=== PATIENT | female | born 1990 | race Caucasian/White ===

== ENCOUNTER 2016-11-27 12:23 | Observation (INO) | payer MEDICAID ==
[2016-11-27] MEDS ORDERED: Sodium Chloride 0.9% 1,000 ML IV ONE (12:34)
[2016-11-27] MEDS ORDERED: Sodium Chloride 0.9% 10 ML Syringe FLUSH PRN (12:34)
[2016-11-27 13:09] LABS: CHLORIDE,CL 107 mmol/L (101-111); SODIUM,NA 136 mmol/L (135-145)
[2016-11-27] MEDS ORDERED: Acetaminophen 325 MG Tab PO PRN (15:03)
[2016-11-27] MEDS ORDERED: Lactated Ringers 1,000 ML IV ONE (16:54)
--- NOTE | 2016-11-27 17:37 | HP ---
CHIEF COMPLAINT: "I am bleeding profusely". HISTORY OF PRESENT ILLNESS: Mrs. Villanueva is a 26-year-old 3 para 3-0 - 0-3 female, who reports to the [facility] Emergency Department in [place] because of profuse vaginal bleeding. She states that 12 days ago, she had a total laparoscopic hysterectomy by Dr. An in [place] at [facility] and she was doing wonderfully until today when she was doing some housecleaning, she started bleeding and she was bleeding so much it was running down her legs. So, she came into the Emergency Department and I was called immediately to come see her. She started feeling lightheaded and dizzy, and I could see the blood coming out of her vagina and perineum onto the bed with large blood clots. Blood pressure was 60/30. Pulse 124 and she had IV fluids LR running into 2 IV sites wide open She had no shortness of breath, chest pain , dyspnea, nausea,vomiting, or diarrhea. No fever or chills. No hematochezia, hematemesis, backpain, leg pain, leg edema, or abdominal pain. She just had the bleeding that started acutely at home before coming in. PAST MEDICAL HISTORY: She has history of cold sores, herpes labialis. She denies any anemia, asthma, cancer, diabetes, thyroid disease, seizure disorder, thromboembolic disease, breast lesions, blood transfusions, or any other genetic illnesses throughout her lifetime. PAST SURGICAL HISTORY: Tubal ligation in December of 2015, which was done laparoscopically. Total laparoscopic hysterectomy, 12 days ago at [facility] by Dr. An. SOCIAL HISTORY: She was a smoker and she quit; since her surgery, she did have cravings, so she put nicotine patches on, but she denies any alcohol use or illicit drug use. She lives in [place] with her and three children. 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 GYNECOLOGY HISTORY: On 04/02/2016, normal spontaneous vaginal delivery; 03/2011, normal spontaneous vaginal delivery; 03/2004, normal spontaneous vaginal delivery. REVIEW OF SYSTEMS: All pertinent positive and negative review of systems per HPI. All other systems reviewed were negative. MEDICATIONS: Nicotine patch. LABORATORY DATA: Blood type O positive, antibody screen negative. WBC 8.8, hemoglobin 11.0, hematocrit 32.4, platelet count 445,000. PT 11.0. INR 1.1. CMP was normal. Ultrasound of the pelvis was accomplished. There was noted to be about 2.5 x 4 cm area of fluid in the pelvis near the vaginal cuff, which most likely represents blood and also could be residual fluid from her hysterectomy 12 days ago, but there was no blood that the plumbing service technician could see up near the kidneys or in the upper abdomen. OBJECTIVE: Vital Signs: Pulse 118, respirations 18, temp 98.8. General: A well-developed, well-nourished female, in moderate distress secondary to her dizziness, lightheadedness, and discomfort during her procedure. HEENT: Unremarkable. Neck: Supple without adenopathy or thyromegaly. Lungs: Clear to auscultation. No wheezing, rhonchi, or rales noted. Cardiovascular: Regular rhythm with tachycardia. Abdomen: Soft, nontender. Bowel sounds good. No rigidity, rebound tenderness, or peritoneal signs noted. No distention. Back: No CVA tenderness. Extremities: No edema, erythema, or tenderness noted. : Large amount of blood coming from the vagina. She had a total blood loss after arriving to the Emergency Department of 1200 mL of blood and blood clots. I placed a speculum into the vaginal vault after the patient was placed in the dorsal lithotomy position and I removed all blood and blood clots. There was noted to be active bleeding from a blood vessel on the left side of the vaginal cuff. I packed this area while searching for instruments and suture to stop the bleeding and despite putting 20 sponges into the vagina and pressure, she continued to bleed through these. Once I got all the suture material and instruments, the sponges were removed. I then placed three [id number] sutures around the bleeding site. I tied the knots down and was able to stop the bleeding. We used 0 [address] on [address]-1 needle. I cleaned the entire vagina out and dried it and despite putting pressure on the vaginal cuff and relaxing on the sutures, she had no more bleeding noted. The sutures were cut and again, evaluation of the vaginal cuff revealed no bleeding. ASSESSMENT: 1. Postoperative day #12 status post total laparoscopic hysterectomy. 2. Active bleeding from a blood vessel, which most likely with the amount of bleeding, was a vessel at the vaginal cuff. I was able to stop the bleeding with multiple [id number] sutures of 0 Vicryl suture. 3. Symptomatic hypotensio secondary to vaginal bleeding of 1200 mL. 4. Anemia secondary to acute blood loss. PLAN: 1. The patient is being admitted for observation and giving 2 units of packed red blood cells. We will recheck her hemoglobin approximately 4 hours after the second unit of packed red blood cells is transfused. 2. I will repeat her hemoglobin in the morning before she goes home as long as she is stable. 3. Risks, benefits, complications, and side effects of the procedure that we did today were discussed with the patient including injury to the bowel, and the risks of scarring of the vaginal cuff and continued bleeding despite stopping the bleeding externally. She understands this and also understands that she could have to go back to the operating room if she starts bleeding again. 4. The patient is to follow up with me during my December visit here at the [facility] in [place] for followup but if she does have any issues between now and then, she is to follow up with Dr. An in [place] at [facility]. 5. We will send her home with vitamin daily along with some iron, depending on what her hemoglobin is. 6. All her questions were answered. [facility] /[id number] MTDD
--- NOTE | 2016-11-27 17:48 | ER ---
SUBJECTIVE: The patient is a 26-year-old female, who came in to the emergency room with acute vaginal bleeding. Apparently, she just had a hysterectomy this past week. She comes in soaking pads, vaginal bleeding with clots, she is somewhat hypotensive. I was called immediately to the room to examine the patient. She did not really have much abdominal tenderness. Quick exam of her perineum with female RN, showed multiple clots that already passed and a bulging clot just at the os of the vagina. An IV was started immediately. She was given some IVF immediately. OB sports attorney on-call is Dr. West and he was called immediately and he came to the room and resume care from that point on. I did not evaluate or cared for the patient further. Please see Dr. West' note. He did go ahead and ligated the bleeding artery and got it all stopped. PAST MEDICAL HISTORY: As far as I know, 3 previous pregnancies and recent hysterectomy. CURRENT MEDICATIONS: 1. vitamins. 2. Valtrex 500 mg p.o. daily. 3. Percocet after the recent hysterectomy. ALLERGIES: She is not allergic to no medications. REVIEW OF SYSTEMS: Briefly revealed no chest pain, shortness of breath, headaches, trauma. No vomiting, no syncope, near syncope but she did have the acute vaginal bleeding. OBJECTIVE: Vital signs: Her blood pressure was reportedly 66/45 or there about. She was slightly tachycardic. GENERAL: She was bright eyed. A and O x3. GCS of 15. Normocephalic and atraumatic. Good historian. Normal speech. Very interactive and appropriate. No respiratory distress. CV: RRR. Upper lower extremities have good pulses. Abdomen: Soft, very mildly tendered and low but no acute abdomen. Again, she had the bleeding at the vaginal os with clots. LABORATORY DATA: Labs at that time were back, had normal white count, she had hemoglobin of 11, hematocrit of 32.4, platelets are normal; differentials were unremarkable. INR was 1.1. Her CMP was quite unremarkable. Her blood type was O positive. Again, I was not involved with any further care with the patient, please see Dr. West note. ASSESSMENT: Acute vaginal bleeding after recent hysterectomy. ER course cared for by Dr. West. PLAN: Please see Dr. West' note. He does plan to admit the patient and observe her. [facility] /[id number]
[2016-11-27] MEDS ORDERED: Ibuprofen 800 MG Tab PO PRN (22:01)
[2016-11-27] MEDS ORDERED: Docusate Sodium 100 MG Cap PO PRN (22:02)
[2016-11-28] MEDS: oxyCODONE 5 MG Tab PO PRN ×2 (00:17→04:14)
--- NOTE | 2016-11-28 03:58 | PCM.DCSUM1 ---
Discharge Summary - Hospital Course Free Text/Narrative:: 26 y.o 3 para 3-0-0-3 female with history of Total laparoscopic hysterectomy by Dr. An in [place] 13 days ago who was admitted for observation after undergoing heavy vaginal bleeding yesterday while doing housework at home. She had 1200 ml of blood loss in the Emergency Department. I suture ligated a bleeding blood vessel on the vaginal cuff with figure of 8 sutures of O Vicryl. the bleeding stopped and because of her being symptomatic with Low blood pressures, tachycardia and lightheadness and dizziness we admitted her for 2 units of packed red blood cells. She tolerated that fine and she felt much better after the 2 units of Packed red blood cells. Her vitals were stable and she was afebrile. She tolerated her diet well and ambulated well. She had good urinary output. She was discharged to home after being watched overnight. HPI Initial Comments: DISCHARGE INSTRUCTIONS: 1. Discharge to home. 2. Follow-up with me in December at 6 week check up 3. Follow-up with Dr. An with any further issues with her surgery. 4. vitamin and iron daily po 5. Ibuprofen, Tylenol and oxycodone for pain as needed for pain. DISCHARGE DIAGNOSIS: 1. Post-op Day # 12 vaginal bleeding fronm vaginal cuff S/P Total Laparoscopic hysterectomy. 2. Symptomatic acute anemia secondary to blood loss. 3. Repair of vaginal cuff bleeding with suture ligation of vaginal cuff. 4. Blood transfusion 2 units of Packed red blood cells. - Discharge Data Discharge Date: 11/28/16 (Hospital Day # 1) Discharge Disposition: Home, Self-Care 01 Condition: Good - Patient Summary/Data Operative Procedure(s) Performed: Vaginal cuff blood vessel suture ligated. - Patient Instructions Diet: Regular Diet as Tolerated Activity: As Tolerated, Full Weight Bearing Showering/Bathing: May Shower Wound/Incision Care: Keep Operative Site/Wound Site Clean and Dry Notify Provider of: Fever, Increased Pain, Swelling and Redness, Drainage, Nausea and/or Vomiting - Discharge Plan Home Medications: Home Meds . [No Known Home Meds] 11/27/16 [History] Forms: ED Department Discharge Referrals: PCP,Unobtain [Ordering Only Provider] - - Discharge Summary/Plan Comment DC Time >30 min.: Yes - Patient Data Vitals - Most Recent: Last Vital Signs Temp 98.6 F 11/28/16 03:40 Pulse 93 11/28/16 03:40 Resp 16 11/28/16 03:40 BP 103/57 L 11/28/16 03:40 Pulse Ox 100 11/28/16 03:40 Weight - Most Recent: 148 lb I&O - Last 24 hours: Intake & Output 11/27/16 11/27/16 11/28/16 14:59 22:59 06:59 Intake Total 2815 Output Total 2150 Balance 665 Lab Results - Last 24 hrs: Laboratory Results - last 24 hr 11/27/16 11/27/16 Range/Units 16:57 22:42 WBC 11.0 H (5.0-10.0) 10^3/uL RBC 3.60 L (4.2-5.4) 10^6/uL Hgb 9.2 L 10.3 L (12.0-16.0) g/dL Hct 27.8 L 30.9 L (37.0-47.0) % MCV 85.8 (80-100) fL MCH 28.6 (27.0-34.0) pg MCHC 33.3 (33.0-35.0) g/dL Plt Count 266 (150-450) 10^3/uL Med Orders - Current: Current Medications Acetaminophen (Tylenol) 650 mg PO Q4H PRN PRN Reason: Pain (mild 1-3 )/fever Docusate Sodium (Colace) 100 mg PO BID PRN PRN Reason: Constipation Last Admin: 11/27/16 22:55 Dose: 100 mg Ibuprofen (Motrin) 800 mg PO Q6H PRN PRN Reason: Pain Last Admin: 11/27/16 22:55 Dose: 800 mg Oxycodone HCl (Oxycodone) 5 mg PO Q4H PRN PRN Reason: Pain Last Admin: 11/28/16 00:17 Dose: 5 mg Prenat Multivit/[place]/Iron/Folic Ac ( Plus Iron) 1 each PO DAILY NICK Sodium Chloride (Saline Flush) 10 ml FLUSH ASDIRECTED PRN PRN Reason: Keep Vein Open Discontinued Medications Sodium Chloride (Normal Saline) 1,000 mls @ 1,000 mls/hr IV .BOLUS ONE Stop: 11/27/16 13:33 Last Admin: 11/27/16 17:44 Dose: Not Given Lactated Ringer's (Ringers, Lactated) 1,000 mls @ 999 mls/hr IV .BOLUS ONE Stop: 11/27/16 17:54 Last Admin: 11/27/16 16:15 Dose: 999 mls/hr *Q Meaningful Use (DIS) - VTE *Q VTE Criteria *Q: - Stroke *Q Stroke Criteria *Q: - AMI *Q AMI Criteria *Q:
--- NOTE | 2016-11-28 04:13 | PCM.PN ---
- General Info Date of Service: 11/28/16 (Hospital Day # 1) Functional Status: Reports: pain controlled, tolerating diet, ambulating, urinating - Review of Systems General: Reports: No Symptoms HEENT: Reports: no symptoms Pulmonary: Reports: no symptoms Cardiovascular: Reports: No Symptoms Gastrointestinal: Reports: No symptoms Genitourinary: Reports: no symptoms Musculoskeletal: Reports: no symptoms Skin: Reports: no symptoms Neurological: Reports: No Symptoms Psychiatric: Reports: no symptoms - Patient Data Vitals - most recent: Last Vital Signs Temp 98.6 F 11/28/16 03:40 Pulse 93 11/28/16 03:40 Resp 16 11/28/16 03:40 BP 103/57 L 11/28/16 03:40 Pulse Ox 100 11/28/16 03:40 Weight - most recent: 148 lb I&O - last 24 hours: Intake & Output 11/27/16 11/27/16 11/28/16 14:59 22:59 06:59 Intake Total 2815 Output Total 2150 Balance 665 Lab Results last 24 hrs: Laboratory Results - last 24 hr 11/27/16 11/27/16 Range/Units 16:57 22:42 WBC 11.0 H (5.0-10.0) 10^3/uL RBC 3.60 L (4.2-5.4) 10^6/uL Hgb 9.2 L 10.3 L (12.0-16.0) g/dL Hct 27.8 L 30.9 L (37.0-47.0) % MCV 85.8 (80-100) fL MCH 28.6 (27.0-34.0) pg MCHC 33.3 (33.0-35.0) g/dL Plt Count 266 (150-450) 10^3/uL Med Orders - Current: Current Medications Acetaminophen (Tylenol) 650 mg PO Q4H PRN PRN Reason: Pain (mild 1-3 )/fever Docusate Sodium (Colace) 100 mg PO BID PRN PRN Reason: Constipation Last Admin: 11/27/16 22:55 Dose: 100 mg Ibuprofen (Motrin) 800 mg PO Q6H PRN PRN Reason: Pain Last Admin: 11/27/16 22:55 Dose: 800 mg Oxycodone HCl (Oxycodone) 5 mg PO Q4H PRN PRN Reason: Pain Last Admin: 11/28/16 00:17 Dose: 5 mg Prenat Multivit/[place]/Iron/Folic Ac ( Plus Iron) 1 each PO DAILY NICK Sodium Chloride (Saline Flush) 10 ml FLUSH ASDIRECTED PRN PRN Reason: Keep Vein Open Discontinued Medications Sodium Chloride (Normal Saline) 1,000 mls @ 1,000 mls/hr IV .BOLUS ONE Stop: 11/27/16 13:33 Last Admin: 11/27/16 17:44 Dose: Not Given Lactated Ringer's (Ringers, Lactated) 1,000 mls @ 999 mls/hr IV .BOLUS ONE Stop: 11/27/16 17:54 Last Admin: 11/27/16 16:15 Dose: 999 mls/hr - Exam General: alert, oriented, cooperative, no acute distress HEENT: Pupils equal, Pupils reactive Neck: supple Lungs: Clear to auscultation, Normal respiratory effort Cardiovascular: Regular Rate, Regular Rhythm, No Murmurs Abdomen: bowel sounds present, soft, no tenderness, no distension (Female) Exam: Vaginal bleeding (Very small spotting noted throughout the night) Back Exam: normal inspection, full range of motion Extremities: no edema, normal pulses, no tenderness/swelling Skin: warm, dry, intact Wound/Incisions: healing well, no drainage Neurological: no new focal deficit, normal gait, normal speech Psy/Mental Status: alert, normal affect, normal mood - Problem List Review Problem List Initiated/Reviewed/Updated: Yes - My Orders Last 24 Hours: My Active Orders 11/27/16 15:10 Ready for Discharge [RC] PER UNIT ROUTINE 11/27/16 22:01 Ibuprofen [Motrin] 800 mg PO Q6H PRN 11/27/16 22:02 Docusate Sodium [Colace] 100 mg PO BID PRN 11/28/16 00:09 oxyCODONE 5 mg PO Q4H PRN - Assessment Assessment:: POD # 13 S/P Total laproscopic hysterectomy feeling much better. S/P vaginal bleeding with 1200 mL of blood loss Symptomatic anemia secondary to acute blood loss improved. Transfused 2 units of packed red blood cell - Plan Plan:: Discharge to home. Follow up with Dr. An with any further issues. Follow-up for 6 week checkup Take it slowly and no intercourse until 8 weeks after initial surgery. No heavy lifting or housework for the next 2 weeks. Ibuprofen, Tylenol Oxycodone for pain as needed. vitamin and iron for the next 2 weeks.
[2016-11-28 07:27] VITALS: BP 113/65
[2016-11-28] MEDS ORDERED: Prenatal Multivitamin with Calcium/Folic Acid/Iron Tab PO SCH (09:00)
== END 2016-11-28 08:40 | disposition home or self-care (01) ==
LOC: DL.ED 12:23 → UNDOADMIN 14:06 → DL.MS 14:06 → INTOOBSV 15:03 → DL.MS 15:03
PROVIDERS: ADMIT Obstetrics & Gynecology; ATTEND Obstetrics & Gynecology
DX: N99.820 Postprocedural hemorrhage of a genitourinary system organ or structure following a genitourinary system procedure (principal); D62 Acute posthemorrhagic anemia; J45.909 Unspecified asthma, uncomplicated; E03.9 Hypothyroidism, unspecified; Z90.710 Acquired absence of both cervix and uterus; Z98.51 Tubal ligation status; Z98.890 Other specified postprocedural states; Z87.891 Personal history of nicotine dependence; Z79.899 Other long term (current) drug therapy
CPT/HCPCS: 36415; 36430; 76830; 76856; 80053; 85014; 85018; 85025; 85027; 85610; 86850; 86900; 86901; 86920; 86922; 96360; 99285; A9270; G0378; J7120; P9016

== ENCOUNTER 2020-07-22 02:04 | Emergency (ER) | payer MEDICAID ==
[2020-07-22] MEDS ORDERED: Sodium Chloride 0.9% 1,000 ML IV ONE (02:11)
--- NOTE | 2020-07-22 02:13 | EDM.PDOC ---
ED HPI GENERAL MEDICAL PROBLEM - General Chief Complaint: Drug or Alcohol Abuse Stated Complaint: OVERDOSE Time Seen by Provider: 07/22/20 02:13 Source of Information: Reports: Patient, Family History Limitations: Reports: No Limitations - History of Present Illness INITIAL COMMENTS - FREE TEXT/NARRATIVE: overdose 20-25 propranolol 20mg tablets approximately 10pm tonight, reports self induced vomiting x 3 within past 2 hours some partialy digested pill fragments in emesis. Hx anxiety and depression, Denied prior attempts. Reports not feeling suicidal at present. Saw provider yesterday. Does not feel meds working/ Tomorrow adding "antipsychotic" Does not know name of all medications. Took usual medications this am. Blood to left hand reports scratch on nail on stairway that is under construction. Denied self harm. Wounds appear inconsistent with nail scratch. - Related Data Allergies Allergy/AdvReac Type Severity Reaction Status Date / Time No Known Allergies Allergy Verified 07/22/20 02:32 Home Meds: Home Meds . 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 hx ctx Musculoskeletal History: Reports: Back Pain, Chronic - Infectious Disease History Infectious Disease History: Reports: Other (See Below) (Adacel 2016) - Past Surgical History HEENT Surgical History: Reports: Oral Surgery Female Surgical History: Reports: Tubal Ligation Social & Family History - Family History Oncologic: Reports: Lung - Caffeine Use Caffeine Use: Reports: Soda, Tea ED ROS GENERAL - Review of Systems Review Of Systems: Comprehensive ROS is negative, except as noted in HPI. ED EXAM, GENERAL - Physical Exam Exam: See Below Exam Limited By: No Limitations General Appearance: Alert, Mild Distress Ears: Normal External Exam, Hearing Grossly Normal Nose: Normal Inspection Throat/Mouth: Normal Inspection Head: Atraumatic, Normocephalic Neck: Normal Inspection Respiratory/Chest: No Respiratory Distress, Lungs Clear, Normal Breath Sounds Cardiovascular: Normal Peripheral Pulses, Regular Rate, Rhythm GI/Abdominal: Soft, Non-Tender Extremities: Normal Inspection Neurological: Alert, Oriented, Normal Cognition Psychiatric: Flat Affect Skin Exam: Wound/Incision (superficial lacerations/scratxhes left inner wrist, dried blood, no active bleeding) Course - Vital Signs Last Recorded V/S: Last Vital Signs Temp 98 F 07/22/20 02:10 Pulse 77 07/22/20 02:10 Resp 17 07/22/20 02:10 BP 132/93 H 07/22/20 02:10 Pulse Ox 100 07/22/20 02:10 - Orders/Labs/Meds Labs: Laboratory Tests 07/22/20 07/22/20 07/22/20 Range/Units 02:15 02:19 02:19 WBC 14.1 H (5.0-10.0) 10^3/uL RBC 4.86 (4.2-5.4) 10^6/uL Hgb 15.4 D (12.0-16.0) g/dL Hct 43.9 (37.0-47.0) % MCV 90.3 D (80-100) fL MCH 31.7 (27.0-34.0) pg MCHC 35.1 H (33.0-35.0) g/dL Plt Count 414 D (150-450) 10^3/uL Neut % (Auto) 62.2 (42.2-75.2) % Lymph % (Auto) 26.2 (20.5-50.1) % [place] % (Auto) 6.3 (2-8) % Eos % (Auto) 4.8 H (1.0-3.0) % Baso % (Auto) 0.5 (0.0-1.0) % Sodium 139 (136-145) mmol/L Potassium 3.4 L (3.5-5.1) mmol/L Chloride 102 (98-107) mmol/L Carbon Dioxide 25 (21-32) mmol/L Anion Gap 15.4 H (7-13) mEq/L BUN 7 (7-18) mg/dL Creatinine 0.86 (0.55-1.02) mg/dL Est Cr Clr Drug Dosing 74.96 mL/min Estimated GFR (MDRD) > 60 BUN/Creatinine Ratio 8.1 (No establ ref range) Glucose 94 (74-99) mg/dL POC Glucose 104 (70-105) mg/dl Calcium 8.7 (8.5-10.1) mg/dL Magnesium 2.0 (1.8-2.4) mg/dL Total Bilirubin 0.7 (0.2-1.0) mg/dL AST 16 (15-37) U/L ALT 24 (14-59) U/L Alkaline Phosphatase 80 (46-116) U/L Total Protein 7.1 (6.4-8.2) g/dL Albumin 3.7 (3.4-5.0) g/dL Globulin 3.4 Albumin/Globulin Ratio 1.1 Amylase 75 (25-115) U/L Lipase 78 (73-393) U/L Urine HCG, Qual Salicylates (2.8-20(Therapeutic)) mg/dL Urine Opiates Screen (NEGATIVE) Ur Oxycodone Screen (NEGATIVE) Urine Methadone Screen (NEGATIVE) Acetaminophen (10-30 (Therapeutic)) ug/mL Ur Barbiturates Screen (NEGATIVE) U Tricyclic Antidepress (NEGATIVE) Ur Phencyclidine Scrn (NEGATIVE) Ur Amphetamine Screen (NEGATIVE) U Methamphetamines Scrn (NEGATIVE) Urine MDMA Screen (NEGATIVE) U Benzodiazepines Scrn (NEGATIVE) Urine Cocaine Screen (NEGATIVE) U Marijuana (THC) Screen (NEGATIVE) Ethyl Alcohol < 3 (0) mg/dL 07/22/20 07/22/20 07/22/20 Range/Units 02:19 02:19 02:21 WBC (5.0-10.0) 10^3/uL RBC (4.2-5.4) 10^6/uL Hgb (12.0-16.0) g/dL Hct (37.0-47.0) % MCV (80-100) fL MCH (27.0-34.0) pg MCHC (33.0-35.0) g/dL Plt Count (150-450) 10^3/uL Neut % (Auto) (42.2-75.2) % Lymph % (Auto) (20.5-50.1) % [place] % (Auto) (2-8) % Eos % (Auto) (1.0-3.0) % Baso % (Auto) (0.0-1.0) % Sodium (136-145) mmol/L Potassium (3.5-5.1) mmol/L Chloride (98-107) mmol/L Carbon Dioxide (21-32) mmol/L Anion Gap (7-13) mEq/L BUN (7-18) mg/dL Creatinine (0.55-1.02) mg/dL Est Cr Clr Drug Dosing mL/min Estimated GFR (MDRD) BUN/Creatinine Ratio (No establ ref range) Glucose (74-99) mg/dL POC Glucose (70-105) mg/dl Calcium (8.5-10.1) mg/dL Magnesium (1.8-2.4) mg/dL Total Bilirubin (0.2-1.0) mg/dL AST (15-37) U/L ALT (14-59) U/L Alkaline Phosphatase (46-116) U/L Total Protein (6.4-8.2) g/dL Albumin (3.4-5.0) g/dL Globulin Albumin/Globulin Ratio Amylase (25-115) U/L Lipase (73-393) U/L Urine HCG, Qual Negative Salicylates 3.9 (2.8-20(Therapeutic)) mg/dL Urine Opiates Screen (NEGATIVE) Ur Oxycodone Screen (NEGATIVE) Urine Methadone Screen (NEGATIVE) Acetaminophen 0 L (10-30 (Therapeutic)) ug/mL Ur Barbiturates Screen (NEGATIVE) U Tricyclic Antidepress (NEGATIVE) Ur Phencyclidine Scrn (NEGATIVE) Ur Amphetamine Screen (NEGATIVE) U Methamphetamines Scrn (NEGATIVE) Urine MDMA Screen (NEGATIVE) U Benzodiazepines Scrn (NEGATIVE) Urine Cocaine Screen (NEGATIVE) U Marijuana (THC) Screen (NEGATIVE) Ethyl Alcohol (0) mg/dL 07/22/20 Range/Units 02:21 WBC (5.0-10.0) 10^3/uL RBC (4.2-5.4) 10^6/uL Hgb (12.0-16.0) g/dL Hct (37.0-47.0) % MCV (80-100) fL MCH (27.0-34.0) pg MCHC (33.0-35.0) g/dL Plt Count (150-450) 10^3/uL Neut % (Auto) (42.2-75.2) % Lymph % (Auto) (20.5-50.1) % [place] % (Auto) (2-8) % Eos % (Auto) (1.0-3.0) % Baso % (Auto) (0.0-1.0) % Sodium (136-145) mmol/L Potassium (3.5-5.1) mmol/L Chloride (98-107) mmol/L Carbon Dioxide (21-32) mmol/L Anion Gap (7-13) mEq/L BUN (7-18) mg/dL Creatinine (0.55-1.02) mg/dL Est Cr Clr Drug Dosing mL/min Estimated GFR (MDRD) BUN/Creatinine Ratio (No establ ref range) Glucose (74-99) mg/dL POC Glucose (70-105) mg/dl Calcium (8.5-10.1) mg/dL Magnesium (1.8-2.4) mg/dL Total Bilirubin (0.2-1.0) mg/dL AST (15-37) U/L ALT (14-59) U/L Alkaline Phosphatase (46-116) U/L Total Protein (6.4-8.2) g/dL Albumin (3.4-5.0) g/dL Globulin Albumin/Globulin Ratio Amylase (25-115) U/L Lipase (73-393) U/L Urine HCG, Qual Salicylates (2.8-20(Therapeutic)) mg/dL Urine Opiates Screen Negative (NEGATIVE) Ur Oxycodone Screen Negative (NEGATIVE) Urine Methadone Screen Negative (NEGATIVE) Acetaminophen (10-30 (Therapeutic)) ug/mL Ur Barbiturates Screen Negative (NEGATIVE) U Tricyclic Antidepress Negative (NEGATIVE) Ur Phencyclidine Scrn Negative (NEGATIVE) Ur Amphetamine Screen Positive H (NEGATIVE) U Methamphetamines Scrn Positive H (NEGATIVE) Urine MDMA Screen Negative (NEGATIVE) U Benzodiazepines Scrn Negative (NEGATIVE) Urine Cocaine Screen Negative (NEGATIVE) U Marijuana (THC) Screen Negative (NEGATIVE) Ethyl Alcohol (0) mg/dL Meds: Medications Discontinued Medications Generic Name Dose Route Start Last Admin Trade Name Freq PRN Reason Stop Dose Admin Bacitracin 1 dose 07/22/20 04:56 07/22/20 05:00 Bacitracin Oint 1 Gm TOP 07/22/20 04:57 1 dose ONETIME ONE Administration Sodium Chloride 1,000 mls @ 999 mls/hr 07/22/20 02:11 07/22/20 02:20 Normal Saline IV 07/22/20 03:11 999 mls/hr .BOLUS ONE Administration - Re-Assessments/Exams Free Text/Narrative Re-Assessment/Exam: Crisis Counselor from [facility] here to assess patient. Patient will follow with [facility] later today and follow up for med management Departure - Departure Time of Disposition: 04:56 Disposition: Home, Self-Care 01 Condition: Fair Clinical Impression: Anxiety and depression Overdose Qualifiers: Encounter type: initial encounter Injury intent: intentional self-harm Qualified Code(s): T50.902A - Poisoning by unspecified drugs, medicaments and biological substances, intentional self-harm, initial encounter - Discharge Information *PRESCRIPTION DRUG MONITORING PROGRAM REVIEWED*: No *COPY OF PRESCRIPTION DRUG MONITORING REPORT IN PATIENT [place]: No Instructions: Suicidal Feelings: How to Help Yourself, Managing Anxiety, Adult Forms: ED Department Discharge Additional Instructions: follow up with [facility] today, Light activity frequent small meals increase fluids monitor wound, follow up redness drainage noted
[2020-07-22 02:22] VITALS: BP 132/93; PULSE 77
[2020-07-22 02:51] LABS: ANION GAP 15.4 mEq/L (7-13); CHLORIDE,CL 102 mmol/L (98-107); SODIUM,NA 139 mmol/L (136-145)
[2020-07-22] MEDS ORDERED: Bacitracin Oint 1 GM U/D Packet TOP ONE (04:56)
== END 2020-07-22 05:06 | disposition home or self-care (01) ==
LOC: DL.ED 02:04
DX: T50.902A Poisoning by unspecified drugs, medicaments and biological substances, intentional self-harm, initial encounter (principal); F41.8 Other specified anxiety disorders; S61.512A Laceration without foreign body of left wrist, initial encounter; W45.0XXA Nail entering through skin, initial encounter
CPT/HCPCS: 36415; 80053; 80305-QW; 80307; 81025; 82150; 82962; 83690; 83735; 85025; 93005; 99285-25; J7030

== ENCOUNTER 2021-02-16 17:32 | Emergency (ER) | payer MEDICAID ==
[2021-02-16 17:45] VITALS: BP 141/100; PULSE 95
[2021-02-16] MEDS ORDERED: diphenhydrAMINE 50 MG/ML SDV IVPUSH ONE (17:46)
[2021-02-16] MEDS ORDERED: Sodium Chloride 0.9% 10 ML Syringe FLUSH PRN (17:47)
[2021-02-16] MEDS ORDERED: Metoclopramide 10 MG/2 ML SDV IVPUSH ONE (17:47)
[2021-02-16] MEDS ORDERED: Ketorolac 30 MG/ML SDV IVPUSH ONE (17:47)
[2021-02-16] MEDS ORDERED: Sodium Chloride 0.9% 1,000 ML IV ONE (17:47)
--- NOTE | 2021-02-16 18:21 | EDM.PDOC ---
Scribed by Smiley Lynne 02/16/21 [id number] for Vincenzo Holland MD ED HPI GENERAL MEDICAL PROBLEM - General Chief Complaint: Headache Stated Complaint: MIGRAINE ALL DAY Time Seen by Provider: 02/16/21 17:41 Source of Information: Reports: Patient, EMS, RN, RN Notes Reviewed History Limitations: Reports: No Limitations - History of Present Illness INITIAL COMMENTS - FREE TEXT/NARRATIVE: Patient presents to ED by POV complaining of migraine headache that started at noon today. Pt has Hx of migraines. She states this headache is on the left side, causes nausea, and light hurts her eyes. She took 4 Excedrin at 1500HRS with no relief. She stopped her propranolol on her own without her doctor's knowledge. Onset: Today Duration: Constant Location: Reports: Head Quality: Reports: Ache, Same as Previous Episode Severity: Severe Improves with: Reports: None Worsens with: Reports: None Associated Symptoms: Reports: No Other Symptoms Head Pain Score (Numeric/FACES): 8 - Related Data Allergies Allergy/AdvReac Type Severity Reaction Status Date / Time No Known Allergies Allergy Verified 02/16/21 17:46 Home Meds: Home Meds . 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 hx ctx Musculoskeletal History: Reports: Back Pain, Chronic Neurological History: Reports: Migraines Hematologic History: Reports: Anemia - Infectious Disease History Infectious Disease History: Reports: Other (See Below) (Adacel 2016) - Past Surgical History HEENT Surgical History: Reports: Oral Surgery Female Surgical History: Reports: Tubal Ligation Social & Family History - Family History Family Medical History: No Pertinent Family History Oncologic: Reports: Lung - Caffeine Use Caffeine Use: Reports: Soda, Tea - Living Situation & Occupation Living situation: Reports: with Family ED ROS GENERAL - Review of Systems Review Of Systems: Comprehensive ROS is negative, except as noted in HPI. - Physical Exam Exam: See Below Exam Limited By: No Limitations General Appearance: Alert, WD/WN, No Apparent Distress Eye Exam: Bilateral Eye: EOMI, Normal Inspection, PERRL, Other (photophobia) Ears: Normal External Exam, Normal Canal, Hearing Grossly Normal, Normal TMs Nose: Normal Inspection, Normal Mucosa, No Blood Throat/Mouth: Normal Inspection, Normal Lips, Normal Teeth, Normal Gums, Normal Oropharynx, Normal Voice, No Airway Compromise Head Exam: Atraumatic, Normocephalic Neck: Normal Inspection, Supple, Non-Tender, Full Range of Motion Respiratory/Chest: No Respiratory Distress, Lungs Clear, Normal Breath Sounds, No Accessory Muscle Use, Chest Non-Tender Cardiovascular: Normal Peripheral Pulses, Regular Rate, Rhythm, No Edema, No Gallop, No JVD, No Murmur, No Rub GI/Abdominal: Normal Bowel Sounds, Soft, Non-Tender, No Organomegaly, No Distention, No Abnormal Bruit, No Mass (Female) Exam: Deferred Rectal (Female) Exam: Deferred Neuro Exam (Abbreviated): Alert, Oriented, CN II-XII Intact, Normal Cognition, N ormal Gait, Normal Reflexes, No Motor/Sensory Deficits Back Exam: Normal Inspection, Full Range of Motion, NT Extremities: Normal Inspection, Normal Range of Motion, Non-Tender, No Pedal Edema, Normal Capillary Refill Psychiatric: Normal Affect, Normal Mood Skin Exam: Warm, Dry, Intact, Normal Color, No Rash Course - Vital Signs Last Recorded V/S: Last Vital Signs Temp 98 F 02/16/21 17:42 Pulse 95 02/16/21 17:42 Resp 12 02/16/21 17:42 BP 141/100 H 02/16/21 17:42 Pulse Ox 100 02/16/21 17:42 - Orders/Labs/Meds Orders: Active Orders 24 hr Category Date Time Status Peripheral IV Care [RC] . DIRECTED Care 02/16/21 17:47 Active Sodium Chloride 0.9% [Normal Saline] 1,000 ml Med 02/16/21 17:47 Active IV .BOLUS Sodium Chloride 0.9% [Saline Flush] Med 02/16/21 17:47 Active 10 ml FLUSH ASDIRECTED PRN Peripheral IV Insertion Adult [OM.PC] Stat Oth 02/16/21 17:46 Ordered Medication Orders Sodium Chloride (Normal Saline) 1,000 mls @ 999 mls/hr IV .BOLUS ONE Stop: 02/16/21 18:47 Last Admin: 02/16/21 18:03 Dose: 999 mls/hr Documented by: MELANIE Sodium Chloride (Sodium Chloride 0.9% 10 Ml Syringe) 10 ml FLUSH ASDIRECTED PRN PRN Reason: Keep Vein Open Meds: Medications Generic Name Dose Route Start Last Admin Trade Name Freq PRN Reason Stop Dose Admin Sodium Chloride 1,000 mls @ 999 mls/hr 02/16/21 17:47 02/16/21 18:03 Normal Saline IV 02/16/21 18:47 999 mls/hr .BOLUS ONE Administration Sodium Chloride 10 ml 02/16/21 17:47 Sodium Chloride 0.9% 10 Ml Syringe FLUSH ASDIRECTED PRN Keep Vein Open Discontinued Medications Generic Name Dose Route Start Last Admin Trade Name Freq PRN Reason Stop Dose Admin Diphenhydramine HCl 25 mg 02/16/21 17:46 02/16/21 18:01 Diphenhydramine 50 Mg/Ml Sdv IVPUSH 02/16/21 17:47 25 mg ONETIME ONE Administration Ketorolac Tromethamine 30 mg 02/16/21 17:47 02/16/21 18:01 Ketorolac 30 Mg/Ml Sdv IVPUSH 02/16/21 17:48 30 mg ONETIME ONE Administration Metoclopramide HCl 10 mg 02/16/21 17:47 02/16/21 18:03 Metoclopramide 10 Mg/2 Ml Sdv IVPUSH 02/16/21 17:48 10 mg ONETIME ONE Administration Departure - Departure Time of Disposition: 18:40 Disposition: Home, Self-Care 01 Condition: Good Clinical Impression: Migraine - Discharge Information *PRESCRIPTION DRUG MONITORING PROGRAM REVIEWED*: Not Applicable *COPY OF PRESCRIPTION DRUG MONITORING REPORT IN PATIENT [place]: Not Applicable Instructions: Migraine Headache, [id number] Forms: ED Department Discharge Additional Instructions: Your received the following medications for your migraine: Reglan 10mg IV, Marty adryl 25mg IV, and Toradol 30mg IV. Follow up in clinic if needed. Sepsis Event Note (ED) - Focused Exam Vital Signs: Vital Signs Temp Pulse Resp BP Pulse Ox 02/16/21 17:42 98 F 95 12 141/100 H 100 - My Orders Last 24 Hours: My Active Orders 02/16/21 17:46 Peripheral IV Insertion Adult [OM.PC] Stat 02/16/21 17:47 Peripheral IV Care [RC] . DIRECTED Sodium Chloride 0.9% [Normal Saline] 1,000 ml IV .BOLUS Sodium Chloride 0.9% [Saline Flush] 10 ml FLUSH ASDIRECTED PRN - Assessment/Plan Last 24 Hours: My Active Orders 02/16/21 17:46 Peripheral IV Insertion Adult [OM.PC] Stat 02/16/21 17:47 Peripheral IV Care [RC] . DIRECTED Sodium Chloride 0.9% [Normal Saline] 1,000 ml IV .BOLUS Sodium Chloride 0.9% [Saline Flush] 10 ml FLUSH ASDIRECTED PRN I have read and agree with the documentation that has been completed regarding this visit. By signing this record, I attest that the documentation was completed in my physical presence and is an accurate record of the encounter.
== END 2021-02-16 18:30 | disposition home or self-care (01) ==
LOC: DL.ED 17:32
DX: G43.909 Migraine, unspecified, not intractable, without status migrainosus (principal)
CPT/HCPCS: 96374; 96375; 99283; 99283-25; J1200; J1885; J2765; J7030

== ENCOUNTER 2023-02-01 17:45 | Emergency (ER) | payer MEDICAID ==
[2023-02-01] MEDS ORDERED: fentaNYL 100 MCG/2 ML SDV IVPUSH ONE (17:58)
[2023-02-01 18:14] LABS: BASOPHILS PERCENT AUTO 0.2 % (0.0-1.0); EOSINOPHILS PERCENT AUTO 2.1 % (1.0-3.0); HEMATOCRIT 44.6 % (37.0-47.0); HEMOGLOBIN 15.4 g/dL (12.0-16.0); LYMPHOCYTES PERCENT AUTO 17.2 % (20.5-50.1); MEAN CORPUSCULAR HGB CONC 34.5 g/dL (33.0-35.0); MEAN CORPUSCULAR VOLUME 89.7 fL (80-100); MONOCYTES PERCENT AUTO 7.4 % (2-8); NEUTROPHILS PERCENT AUTO 73.1 % (42.2-75.2); PLATELET COUNT,PLT 365 10^3/uL (150-450); RED BLOOD CELL COUNT 4.97 10^6/uL (4.2-5.4); WHITE BLOOD CELL COUNT,WBC 12.2 10^3/uL (5.0-10.0)
[2023-02-01 18:31] LABS: ANION GAP 12.8 mEq/L (7-13); CALCIUM 8.9 mg/dL (8.5-10.1); CREATININE 0.92 mg/dL (0.55-1.02); EST CRCL DRUG DOSING (CG) 68.15 mL/min; POTASSIUM,K 3.8 mmol/L (3.5-5.1)
[2023-02-01] MEDS ORDERED: HYDROmorphone 0.5 MG/0.5 ML Syringe IVPUSH ONE (18:44)
[2023-02-01 18:53] LABS: APPEARANCE,URINE CLOUDY (CLEAR); BILIRUBIN,URINE NEGATIVE (NEGATIVE); COLOR,URINE YELLOW (YELLOW); GLUCOSE,URINE NEGATIVE (NEGATIVE); KETONES,URINE NEGATIVE (NEGATIVE); LEUKOCYTE ESTERASE,URINE NEGATIVE (NEGATIVE); NITRITE,URINE NEGATIVE (NEGATIVE); OCCULT BLOOD,URINE NEGATIVE (NEGATIVE); PH,URINE 7.5 (5.0-9.0); PROTEIN,URINE 30 (NEGATIVE); UROBILINOGEN,URINE 0.2 mg/dL (0.2-1.0)
[2023-02-01 18:57] LABS: AMORPHOUS SEDIMENT,URINE MANY /HPF (NOT SEEN); BACTERIA,URINE FEW /HPF (0-FEW/HPF); EPITHELIAL CELLS,URINE MANY /HPF (NOT SEEN); MUCUS,URINE MODERATE /LPF (NOT SEEN); RBC,URINE 0-5 /HPF (0-5); WBC,URINE 0-5 /HPF (0-5/HPF)
[2023-02-01] MEDS ORDERED: Take Home: Acetaminophen/oxyCODONE 325-5 MG, 5 Tab Pack PO ONE (20:35)
== END 2023-02-01 21:03 | disposition home or self-care (01) ==
LOC: DL.ED 17:45
DX: N83.202 Unspecified ovarian cyst, left side (principal); I10 Essential (primary) hypertension
CPT/HCPCS: 36415; 76830; 80048; 81001; 83605; 84702; 85025; 96374; 96375; 99284; J1170; J3010